=== PATIENT | female | born 1990 | race Caucasian/White ===

== ENCOUNTER 2018-07-16 00:53 | Emergency (ER) | payer BC, SELFPAY ==
[2018-07-16 01:01] VITALS: BP 122/79; PULSE 67; RESP 15; TEMP 37.1; O2SAT 98
--- NOTE | 2018-07-16 01:10 | ED.GENADUL_ITS ---
Discharge Plan Disposition Patient Disposition: HOME Condition: Good Discharge Details Chief Complaint: Abd Prob Clinical Impression: UTI (urinary tract infection), Gastritis ED Provider: Mario Sauceda Home Meds and New Rx's Prescriptions: New cephalexin [Keflex] 500 mg capsule 500 mg PO BID 10 Days Qty: 20 RF: 0 omeprazole 40 mg capsule,delayed release(DR/EC) 40 mg PO DAILY Qty: 30 RF: 0 Discharge Instructions Instructions: Gastritis (ED), Urinary Tract Infection in Women (ED) Additional Instructions: Please take the antibiotic as directed. Please avoid any spicy foods, and take the stomach medication as directed. If you notice any worsening of your symptoms, or any new symptoms such as vomiting, diarrhea, fever, chills, shortness of breath, chest pain, numbness, weakness, or fainting , please return immediately to the emergency department for reevaluation. Please follow up with your primary care provider as soon as possible for reassessment and reevaluation. As always, it was a pleasure participating in your medical care today. Medical Decision Making This is a pleasant 28-year-old female who presents for evaluation of mild flank pain, intermittent chills, and increased urinary frequency. She also has very mild left upper quadrant epigastric pain. Physical exam demonstrates a reassuring abdominal exam with mild left upper quadrant tenderness. Minimal CVA tenderness on percussion. No guarding or rebound. Differential includes gastritis, stomach ulcer, urinary tract infection, or pyelonephritis. We will rehydrate, assess with laboratory workup and evaluate for any potential infectious etiology. With no signs of an acute abdomen whatsoever and very minimal tenderness on palpation of the abdomen feel that a CT scan is not indicated at this time as there is no current clinical indication for based on exam with her current clinical evaluation being clinically inconsistent with appendicitis, or gallbladder etiology. 2:26 AM Patient's laboratory workup has returned and demonstrates mildly elevated white count, no bandemia. Urinalysis shows small leuk esterase, however RBCs are only 0-2, and WBCs are 20-50 with evidence of bacteria. With the patient's increased urinary frequency, her very mild flank pain, and her symptoms similar to her previous episodes when she has had a urinary tract infection I feel her signs and symptoms are clinically consistent with pyelonephritis. Patient will be given 1 g of Rocephin here, she has been rehydrated. She is feeling much better at this time. I feel that the patient be safely discharged home with close follow-up with her primary care provider. Additionally I do feel that she is suffering from a mild gastritis as well she has had notable improvement of her symptoms with a GI cocktail. We discussed the appropriate diet on an outpatient basis as well as medications for home use. We discussed red flags for which to return and the patient understands. With the patient demonstrating reassuring vital signs, no signs or symptoms consistent with a toxic or septic etiology, I feel that she is appropriate for discharge. I have extensively reviewed the treatment plan and discharge instructions with the patient and their family. I have addressed all patient concerns at this time. The patient and family was made aware of what symptoms to monitor for that would warrant a return to the emergency department. Discussed the plan with the patient and family, they demonstrate verbal understanding and agreement with our assessment and plan at this time. HPI General Date/Time Provider Initiated Documentation: 07/16/18 00:55 . HPI Narrative: This is a 28-year-old female with no significant past medical history who presents today for evaluation of abdominal pain, flank pain , and chills. Patient states that starting earlier today she developed increased urinary frequency with some mild associated left upper quadrant epigastric pain, however as the day continued she developed mild bilateral flank pain. There is no radiation of her pain to the groin. She denies any hematuria. Although she admits to chills she denies any fever. She has had a urinary tract infection in the past which has presented with flank pain before. She denies any vomiting, or diarrhea. She does admit to mild nausea. She denies any previous abdominal surgeries. She did eat prior to arrival and this did not worsen or improve her symptoms. She has not taken any Tylenol or Motrin for pain relief. She denies any other aggravating or relieving symptoms. She denies any other modifying factors. She denies any previous abdominal surgeries. Last period was 1 month ago. She denies any vaginal discharge. She denies any IV or illicit drug use. She denies any pertinent family history. Related Data Home Medications Medication Instructions Recorded Confirmed cephalexin [Keflex] 500 mg PO BID 10 Days #20 cap 07/16/18 omeprazole 40 mg PO DAILY #30 cap 07/16/18 Previous Rx's Medication Instructions Recorded cephalexin [Keflex] 500 mg PO BID 10 Days #20 cap 07/16/18 omeprazole 40 mg PO DAILY #30 cap 07/16/18 Allergies Allergy/AdvReac Type Severity Reaction Status Date / Time No Known Allergies Allergy Unverified 07/16/18 02:13 Review of Systems Review of Systems All systems reviewed & are unremarkable except as noted in HPI and below Exam Narrative Exam Narrative: 1.Const: Well-nourished, Well-developed, appearing stated age 2.Eyes: PERRL, no conjunctival injection, and symmetrical lids. 3.ENT: Atraumatic external nose and ears. Moist MM. Neck: Symmetric, trachea midline, No thyromegaly. 4.CVS: +S1/S2, No murmurs or gallops. Peripheral pulses 2+ and equal in all extremities. Brisk capillary refill in all extremities. 5.RESP: Unlabored respiratory effort. Clear to auscultation bilaterally. No wheezes rales or rhonchi 6.GI: Soft, Nondistended, No hepatosplenomegaly. No guarding or rebound. No pain at McBurney's point, negative Quispe sign. Negative heel strike test, negative obturator and psoas sign. Minimal bilateral CVA tenderness on percussion, very mild. Minimal left upper quadrant tenderness on deep palpation. 7.MSK: Normocephalic/Atraumatic, Extremities w/o deformity or ttp No cyanosis or clubbing, Normal movement of all extremities 8.Skin: Warm, Dry. No rashes or lesions. 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 Sensation grossly intact, no focal neurologic deficits. 10.Psych: (AAO) x3. Appropriate mood and affect
[2018-07-16 02:09] LABS: Abs Immature Grans 0.05 k/cumm (0.0-0.09); Absolute Basophil Count 0.05 k/cumm (0.0-0.2); Absolute Eosinophil Count 0.37 k/cumm (0.0-0.7); Absolute Neutrophil Count 10.91 k/cumm (1.2-6.7); Basophils % 0.3; Eosinophils % 2.3; HCT 39.2 % (36.0-46.0); HGB 13.3 g/dL (12.0-15.5); Immature Grans % 0.3; Lymphocytes % 23.2; Mean Corp. HGB Concentration 33.9 g/dL (32.0-36.0); Mean Corpuscular Hemoglobin 28.9 pg (27.0-33.0); Mean Corpuscular Volume 85.2 fL (80-95); Mean Platelet Volume 10.2 fL (8.0-11.0); Monocytes % 6.9; Platelet Count 305 x1000/uL (130-400); RBC Distribution Width 13.3 % (11.7-14.6); White Blood Cell Count 16.28 k/cumm (4.4-10.8)
[2018-07-16 02:10] LABS: Absolute Lymphocyte Count 3.78 k/cumm (1.2-3.4); Absolute Monocyte Count 1.12 k/cumm (0.11-0.7)
[2018-07-16 02:13] LABS: Bilirubin Negative (Negative); Blood Moderate (Negative); Glucose Negative (Negative); Ketones Negative (Negative); Leukocyte Esterase Small (Negative); Nitrite Negative (Negative); Specific Gravity 1.015 (1.005-1.025); Urobilinogen 0.2 EU/dL (Up TO 0.2)
[2018-07-16] MEDS: Lactated Ringers 1,000 ML 1000 ML IV (02:16)
[2018-07-16] MEDS: Ketorolac 30 MG/ML VIAL 15 MG IVP (02:16)
[2018-07-16 02:20] LABS: Bacteria Rare HPF (Negative); Clarity Sl Cloudy; Crystals Negative HPF (Negative); Epithelial Cells Few HPF (Negative); Mucus Negative (Negative); RBC 0-2 (0-2); WBC 20-50 HPF (0-5)
[2018-07-16 02:21] LABS: C & S Indicated? Yes; Casts Negative LPF (Negative)
[2018-07-16 02:21] LABS: ALT 21 U/L (12-78); AST 15 U/L (15-37); Albumin 3.8 g/dL (3.4-5.0); Alkaline Phosphatase 82 U/L (46-116); Anion Gap 11.6 mmol/L (3-11); BUN 10 mg/dL (7-18); Bilirubin, Total 0.2 mg/dL (0.2-1.0); CO2 25.4 mmol/L (21.0-32.0); CREATININE 0.77 mg/dL (0.55-1.02); Calcium 8.4 mg/dL (8.5-10.1); Chloride 100 mmol/L (98-107); Glucose 99 mg/dL (70-100); Lipase 120 U/L (73-393); Potassium 3.3 mmol/L (3.5-5.1); Sodium 137 mmol/L (136-145); Total Protein 8.1 g/dL (6.4-8.2)
[2018-07-16 04:30] VITALS: BP 122/79; PULSE 65; RESP 15; TEMP 36.6; O2SAT 98
== END 2018-07-16 04:31 | disposition home or self-care (01) ==
LOC: ER 04:29
PROVIDERS: Emergency Provider Student in an Organized Health Care Education/Training Program; PCP Nurse Practitioner Adult Health
DX: N39.0 Urinary tract infection, site not specified (principal); K29.00 Acute gastritis without bleeding; Z87.440 Personal history of urinary (tract) infections
CPT/HCPCS: 36415; 80053; 81025; 83690; 87077; 96365; 96375; 99284; 81003; 81015; 85025; 87086; 87186; J0696; J1885

== ENCOUNTER 2022-10-20 18:27 | Outpatient (REF) | payer BC, SELFPAY ==
[2022-10-20 20:48] LABS: Bilirubin Negative (Negative); Blood Moderate (Negative); Clarity Clear (Clear); Glucose Negative (Negative); Ketones Negative (Negative); Leukocyte Esterase Small (Negative); Nitrite Positive (Negative); Specific Gravity 1.025 (1.005-1.025); Urobilinogen 0.2 mg/dL (Up to 0.2); pH 5.5 (5-8)
[2022-10-20 20:58] LABS: Bacteria Moderate HPF (Negative); C & S Indicated? No/Sq. Contamination; Casts Negative LPF (Negative); Crystals Negative HPF (Negative); Epithelial Cells Many HPF (Negative); Mucus Negative (Negative)
== END 2022-10-20 18:28 | disposition home or self-care (01) ==
LOC: LBN 18:27
PROVIDERS: PCP Nurse Practitioner Adult Health; Visit Provider Nurse Practitioner Family
DX: R30.0 Dysuria (principal); R39.11 Hesitancy of micturition; N39.0 Urinary tract infection, site not specified
CPT/HCPCS: 81003; 81015

== ENCOUNTER 2023-01-25 20:01 | Outpatient (REF) | payer BC, SELFPAY | END 2023-01-25 20:02 | disposition home or self-care (01) | LOC: LBN 20:01 | PROVIDERS: PCP Nurse Practitioner Adult Health; Visit Provider Nurse Practitioner Family | DX: R30.0 Dysuria (principal) | CPT/HCPCS: 87086 ==

== ENCOUNTER 2023-03-06 11:57 | Emergency (ER) | payer BC, SELFPAY ==
[2023-03-06 12:06] VITALS: BP 128/92; PULSE 84; RESP 16; TEMP 37.3; O2SAT 99
--- NOTE | 2023-03-06 13:30 | DI.US_ITS ---
Exam(s) US ABDOMEN LIMITED EXAM: US ABDOMEN LIMITED CLINICAL HISTORY: RUQ pain, concern for biliary cholic v early endy TECHNIQUE: Ultrasound abdomen performed using standard protocol. COMPARISON: No exams were available for comparison FINDINGS: PANCREAS: Normal where visualized. LIVER: There is fatty infiltration of the liver. Hepatopedal flow in the Portal Vein. The liver aida ures in 22 cm length. GALLBLADDER:There is a mobile gallstone. No evidence of wall thickening. No pericholecystic fluid id entified. BILIARY SYSTEM: Common bile duct measures < 7 mm. No intrahepatic biliary ductal dilation. RENEE'S SIGN: Negative. RIGHT KIDNEY: Kidney is normal in size. No evidence of renal calculi. No evidence of hydronephrosis. No renal mass or cyst identified. ASCITES: None seen. IMPRESSION: 1. Cholelithiasis. No biliary ductal dilatation. 2. Hepatomegaly and hepatic steatosis. DATA REPOSITORY:
[2023-03-06 13:49] LABS: Bilirubin Large (Negative); Blood Negative (Negative); Clarity Sl Cloudy (Clear); Glucose Negative (Negative); Ketones Negative (Negative); Leukocyte Esterase Small (Negative); Nitrite Negative (Negative); Urobilinogen 0.2 mg/dL (Up to 0.2)
[2023-03-06 13:57] LABS: Bacteria Few HPF (Negative); C & S Indicated? No/Sq. Contamination; Casts 0-2 Hyaline LPF (Negative); Crystals Negative HPF (Negative); Epithelial Cells Many HPF (Negative); Mucus Negative (Negative); RBC Negative HPF (0-2)
[2023-03-06 14:00] VITALS: BP 134/90; PULSE 84; RESP 16; O2SAT 98
[2023-03-06] MEDS: Normal Saline 1,000 ML 1000 ML IV (14:03)
[2023-03-06] MEDS: Ketorolac 15 MG/ML VIAL IVP (14:03)
[2023-03-06] MEDS: Ondansetron 4 MG/2 ML VIAL IVP (14:04)
--- NOTE | 2023-03-06 14:18 | W.ED.GENAD ---
Discharge Plan Discharge Details Chief Complaint: Abd Prob Primary Care Provider: Ralph Buenrostro ED Provider: Carloz Torrez Home Meds and New Rx's Prescriptions: No Action phenazopyridine [Pyridium] 200 mg tablet 200 mg PO TID PRN (Reason: pain) Qty: 6 0RF Medical Decision Making 33-year-old female presents with right upper quadrant pain nausea vomiting in the setting of eating over the past several days; afebrile nontoxic no acute distress nonperitoneal. High clinical suspicion for biliary colic given postprandial right upper quadrant discomfort and nausea. Low suspicion for acute cholecystitis. Will obtain right upper quadrant ultrasound basic labs. Analgesia antiemetics close reassessment likely close follow-up with surgical team 17: 48 patient resting comfortably no acute distress no nausea no vomiting. Ultrasound showing bladder wall thickening or cholecystic fluid. However patient has obstructive pattern on her labs consider biliary tree obstruction such as choledocholithiasis. We will obtain CT abdomen pelvis with contrast, will likely need MRCP at some point in her course. HPI General Date/Time Provider Initiated Documentation: 03/06/23 13:33. HPI Narrative: 33-year-old female presents with intermittent right upper quadrant pain over the last several weeks, pain and nausea after eating; patient had 1 episode of vomiting yesterday. Related Data Home Medications Medication Instructions Recorded Confirmed phenazopyridine 200 mg tablet 200 mg PO TID PRN pain 6 doses #6 10/20/22 10/20/22 (Pyridium) tabs Previous Rx's Medication Instructions Recorded phenazopyridine 200 mg tablet 200 mg PO TID PRN pain 6 doses #6 10/20/22 (Pyridium) tabs Allergies Allergy/AdvReac Type Severity Reaction Status Date / Time No Known Allergies Allergy Unverified 01/25/23 18:41 General Stated Complaint: Abd Prob JASKARAN: 3 Review of Systems Narrative: Review of Systems Constitutional: negative Eyes: negative ENT: negative Cardiovascular: negative Respiratory: negative Gastrointestinal: Abdominal pain nausea vomiting : negative Musculoskeletal: negative Skin: negative Neurologic: negative Psych: negative PFSH Social History Smoking risk assessment performed?: No Exam Narrative Exam Narrative: Physical Examination General: alert, awake, cooperative, resting comfortably, no acute distress HEENT: normocephalic, atraumatic; PERRL, EOM intact, conjunctiva normal; no nasal discharge; moist mucous membranes, oral and pharyngeal mucosa normal, tolerating secretions Neck: supple, trachea midline; full ROM Chest: normal to inspection Respiratory: normal respiratory effort, speaking in full sentences, clear to auscultation, no wheezing, rales or rhonchi Cardiac: regular rate, regular rhythm, S1S2 intact, no murmurs rubs or gallops GI: abdomen soft, non-tender, non-distended; no palpable mass or hepatosplenomegaly Skin: no lesions, rashes or trauma appreciated Neuro: AAOx3, normal speech, moving all extremities Psych: Appropriate mood and affect Course Vital Signs Vital signs: Vital Signs Temperature 37.3 C 03/06/23 12:06 Pulse 84 03/06/23 12:06 Respiratory Rate 16 03/06/23 12:06 Blood Pressure 128/92 H 03/06/23 12:06 Pulse Oximetry 99 03/06/23 12:06 Temperature 37.3 C 03/06/23 12:06 Temperature Source Skin 03/06/23 12:06 Pulse 84 03/06/23 12:06 Respiratory Rate 16 03/06/23 12:06 Blood Pressure 128/92 H 03/06/23 12:06 Blood Pressure Position Sitting 03/06/23 12:06 Pulse Oximetry 99 03/06/23 12:06 Oxygen Delivery Method Room Air 03/06/23 12:06 Oxygen Flow Rate 0 03/06/23 12:06 Pain Level 8 03/06/23 12:06 Lab/Test Results Lab/Test Results: Laboratory Tests Range/Units 03/06/23 12:40 Urine Color (Yellow) Dark Yellow Urine Clarity (Clear) Sl Cloudy Urine pH (5-8) 6.0 Ur Specific [place] (1.005-1.025) 1.020 Urine Protein (Negative) mg/dL Trace H Urine Ketones (Negative) mg/dL Negative Urine Blood (Negative) Negative Urine Nitrite (Negative) Negative Urine Bilirubin (Negative) Large H Urine Urobilinogen (Up to 0.2) mg/dL 0.2 Ur Leukocyte Esterase (Negative) Small H Urine RBC (0-2) HPF Negative Urine WBC (0-5) HPF 3-5 Ur Epithelial Cells (Negative) HPF Many Urine Crystals (Negative) HPF Negative Urine Bacteria (Negative) HPF Few Urine Casts (Negative) LPF 0-2 Hyaline Urine Mucus (Negative) Negative Ur Culture Indicated? No/Sq. Contamination Urine Glucose (Negative) mg/dL Negative POC- Test(urine) Negative
[2023-03-06 14:20] LABS: Abs Immature Grans 0.04 10^3/uL (0.0-0.06); Absolute Basophil Count 0.05 10^3/uL (0.0-0.2); Absolute Lymphocyte Count 2.12 10^3/uL (1.2-3.4); Absolute Monocyte Count 0.47 10^3/uL (0.1-0.8); Absolute Neutrophil Count 5.68 10^3/uL (1.2-6.7); Basophils % 0.6; Eosinophils % 1.2; HCT 42.9 % (36.0-46.0); HGB 14.3 g/dL (11.2-15.7); Immature Grans % 0.5; Lymphocytes % 25.1; MCH 27.7 pg (27.0-33.0); MCHC 33.3 % (32.0-36.0); MCV 83 fL (80-95); MPV 10.1 fL (8.0-11.0); Monocytes % 5.6; Platelet Count 275 10^3/uL (130-400); RBC 5.17 10^6/uL (3.93-5.22); RDW 13.2 % (11.7-14.6); RDW-SD 39.8 fL; WBC 8.46 10^3/uL (4.4-10.8)
[2023-03-06 14:35] LABS: AST 495 U/L (15-37); Albumin 4.4 g/dL (3.4-5.0); Alkaline Phosphatase 170 U/L (46-116); Anion Gap 12.6 mmol/L (3-11); BUN 5 mg/dL (7-18); Bilirubin, Total 4.6 mg/dL (0.2-1.0); CO2 25.4 mmol/L (21.0-32.0); CREATININE 0.7 mg/dL (0.55-1.02); Calcium 8.8 mg/dL (8.5-10.1); Chloride 103 mmol/L (98-107); Estimated GFR 118.51 (mL/min/1.73m2); Glucose 96 mg/dL (74-106); Lipase 33 U/L (16-77); Potassium 4.1 mmol/L (3.5-5.1); Sodium 141 mmol/L (136-145); Total Protein 8.3 g/dL (6.4-8.2)
[2023-03-06 15:29] LABS: ALT 1069 U/L (14-59)
[2023-03-06 16:56] VITALS: BP 120/80; PULSE 80; RESP 16; O2SAT 98
--- NOTE | 2023-03-06 17:45 | DI.CT_ITS ---
Exam(s) CT ABDOMEN PELVIS W EXAM: CT ABDOMEN PELVIS W CLINICAL HISTORY: RUQ pain, gall stones, elevted LFTs. TECHNIQUE: Imaging Protocol: Axial computed tomography images with coronal and sagittal reformatted images were created and reviewed CONTRAST MATERIAL: Intravenous: Omnipaque-350 100cc Oral: None COMPARISON: No exams were available for comparison FINDINGS: VISUALIZED LUNG BASES: No significant nodules nor pleural effusions evident. Tiny calcified granulom a noted in the right lower lobe posterior basal segment. ABDOMEN: There is no ascites. LIVER: Liver is somewhat hypodense implying steatosis. There are no discrete focal hepatic lesions e vident. However, there is mild dilatation of intrahepatic ducts evident in both lobes. CBD diameter is upper normal, measuring 6 mm.. There are no obvious radiopaque calculi seen in the CBD. GALLBLADDER/BILIARY: Gallbladder appears somewhat distended. There are no radiopaque calculi in the gallbladder lumen. Gallbladder wall is not edematous and there is no pericholecystic fluid. CBD eulalio meter is upper normal-6 mm. PANCREAS: No evidence of pancreatic mass nor dilatation of the pancreatic duct. SPLEEN: Spleen is not enlarged. No obvious intrasplenic lesions. Splenic and portal veins are paten t. ADRENALS: There is a 1.7 x 1.2 x 2.2 cm nodule located off the medial aspect of the genu of the righ t adrenal gland. Left adrenal gland is unremarkable. KIDNEYS:No cysts evident. No solid renal masses. No calculi nor hydronephrosis.. ABDOMINAL AORTA: Abdominal aorta is not enlarged. LYMPH NODES:There is no retroperitoneal nor paraaortic adenopathy. ABDOMINAL WALL: Fatty variation right rectus abdominus muscle region in the pelvis. Benign appearanc e. GI: There is no evidence of bowel obstruction, free air, nor abscess. PELVIS: GI: No evidence of appendicitis.No evidence of sigmoid diverticulitis. LYMPH NODES: There is no intrapelvic nor inguinal adenopathy. REPRODUCTIVE: Uterus and ovaries appear age appropriate. No abnormal fluid in the pelvis. URINARY BLADDER: No calculi nor obvious masses evident OSSEOUS: No fractures and no significant osseous lesions. IMPRESSION: 1. There is dilatation of the biliary tree somewhat distended gallbladder (no obvious gallstones) as well as mildly dilated intrahepatic ducts. CBD diameter is upper normal. Recommend follow-up, start ing with ultrasound. 2. Hepatic steatosis. No discrete focal hepatic lesions identified. 3. There is a 2.2 x 1.2 x 1.7 cm nodule in the right adrenal gland. Recommend MRI with chemical shif t in and out of phase imaging for further characterization. First read by [facility] Final report called by myself to ER physician 03/07/2023 at 9:05 a.m. RADIATION DOSE DELIVERED: Total DLP DATA REPOSITORY: All CT scans at this facility are submitted to the National Radiology Data Registry (NRDR) Dose Index Registry (DIR) with the [employer] (A[employer]). RADIATION OPTIMIZATION: All CT scans at this facility use at least one of these dose optimization te chniques: automated exposure control; mA and/or kV adjustment per patient size (includes targeted exa ms where dose is matched to clinical indication); or iterative reconstruction.
[2023-03-06] MEDS: Omnipaque 350 MG/ML 100 ML BTL IJ (18:39)
[2023-03-06] MEDS: Normal Saline - Diluent 50 ML VIAL IJ (18:40)
[2023-03-06] MEDS: Normal Saline Flush 10 ML SYR IVP (18:41)
--- NOTE | 2023-03-06 19:34 | DI.VRAD_ITS ---
PROCEDURE INFORMATION: Exam: CT Abdomen And Pelvis With Contrast Exam date and time: 03/06/2023 6:51 PM Age: 33 years old Clinical indication: Abdominal pain; Localized; Right upper quadrant (ruq); Prior surgery; Surgery date: 6+ months; Surgery type: ; Patient HX: Ruq pain, gall stones, elevted lfts TECHNIQUE: Imaging protocol: Computed tomography of the abdomen and pelvis with contrast. Radiation optimization: All CT scans at this facility use at least one of these dose optimization techniques: automated exposure control; mA and/or kV adjustment per patient size (includes targeted exams where dose is matched to clinical indication); or iterative reconstruction. Contrast material: OMNIPAQUE 350; Contrast volume: 100 ml; Contrast route: INTRAVENOUS (IV); COMPARISON: US ABDOMEN LIMITED 03/06/2023 2:05 PM FINDINGS: Liver: Hepatomegaly and diffuse fatty infiltrationNo mass. Mild intrahepatic biliary ductal dilatation. Gallbladder and bile ducts: Distended gallbladder No calcified stones. Mild ductal dilation. Pancreas: Normal. No ductal dilation. Spleen: Normal. No splenomegaly. Adrenal glands: Normal. No mass. Kidneys and ureters: Normal. No hydronephrosis. Stomach and bowel: Unremarkable. No obstruction. No mucosal thickening. Appendix: No evidence of appendicitis. Intraperitoneal space: Unremarkable. No free air. No significant fluid collection. Vasculature: Unremarkable. No abdominal aortic aneurysm. Lymph nodes: Unremarkable. No enlarged lymph nodes. Urinary bladder: Unremarkable as visualized. Reproductive: Partially collapsed cysts in the right ovary measuring 16 mm. Bones/joints: Unremarkable. No acute fracture. Soft tissues: Unremarkable. IMPRESSION: Mild biliary ductal dilatation as described without definite calcified stones. Distended gallbladder. Consider right upper quadrant ultrasound Dictated and Authenticated by: Leon Pretty MD. Ordering:MIKE Carty MD
--- NOTE | 2023-03-06 19:39 | W.EDPROG ---
Date of service: 03/06/23 Time of Service: 19:40 Medical Decision Making patient signed out to me pending CT which shows mild biliary duct dilation without definitive calcified stone on ct, had stones on u/s. She has no pain now and no tenderness on exam, she feels well enough for d/c, advised she should have an MRCP, advised if she can't get her pcp to order it to call the ED tomorrow and see if there would be a time that MRI would be able to obtain one. Offered general surgery referral as well but she declined as she wants to avoid cholecystectomy if possible. Return precautions given Imaging Data Radiologic Study: Attestation: I personally reviewed and interpreted this imaging study as follows: Imaging: CT Scan Radiologist's impression: IMPRESSION: Mild biliary ductal dilatation as described without definite calcified stones. Distended gallbladder. Consider right upper quadrant ultrasound Sign Out Sign Out Data: Sign Out Comment: pending CT abd pelvis RUQ pain, elevated LFTs, US showing gallstones, concern for choledocho Last updated by Carloz Torrez MD at 03/06/23 18:25 Discharge Plan Disposition Patient Disposition: Home Discharge Details Clinical Impression: Abdominal pain, Gallstones Primary Care Provider: Ralph Buenrostro ED Provider: Emil Pham Home Meds and New Rx's Prescriptions: Discontinued phenazopyridine [Pyridium] 200 mg tablet 200 mg PO TID PRN (Reason: pain) Qty: 6 0RF Discharge Instructions Instructions: Gallstones (ED) Additional Instructions: You should have a follow up MRI of your gallbladder, if you call the emergency department in the morning they can see if MRI could fit you in. [phone] Follow up with your primary care provider within 1-2 weeks if you feel more ill, have severe worsening pain or persistent vomiting return to the emergency department
[2023-03-06 19:44] VITALS: BP 135/91; PULSE 63; RESP 14; O2SAT 96
[2023-03-06 19:53] VITALS: BP 135/91; PULSE 63; RESP 14; O2SAT 96
--- NOTE | 2023-03-07 09:17 | W.ED.FU ---
Date of service: 03/07/23 Time of Service: 09:18 Follow Up Plan: CT over read from yesterday demonstrating right-sided adrenal mass. Called patient to discuss incidental findings. Patient is feeling much better than yesterday. Is working to schedule follow-up appoint with her primary care physician. I will be in contact with MRI department this morning to see if we have any availability to fit her in for an MRCP and see if this imaging modality would also help better delineate her adrenal findings on CT.
== END 2023-03-06 19:55 | disposition home or self-care (01) ==
PROVIDERS: Emergency Medicine; Emergency Provider Emergency Medicine; PCP Nurse Practitioner Adult Health
DX: R10.11 Right upper quadrant pain (principal); R11.0 Nausea; K80.20 Calculus of gallbladder without cholecystitis without obstruction; K76.89 Other specified diseases of liver; K76.0 Fatty (change of) liver, not elsewhere classified; E27.8 Other specified disorders of adrenal gland
CPT/HCPCS: 36415; 80053; 83690; 96361; 96374; 96375; 99285; 74177; 76705; 81003; 81015; 85025; 99284; J1885; J2405; J3490